=== PATIENT | female | born 1955 | race African-American/Black ===

== ENCOUNTER 2019-06-09 23:15 | Emergency (ER) | payer MEDICARE, MEDICAID ==
[~2019-06-09] VITALS: Ht 165.1 cm; Wt 77.0 kg
[2019-06-10] MEDS ORDERED: CYCLOBENZAPRINE 10MG TABLET PO ONE
[2019-06-10] MEDS ORDERED: KETOROLAC 60MG/2ML VIAL IM ONE
[2019-06-10] MEDS ORDERED: LIDOCAINE 5% PATCH TOP SCH
[2019-06-10 01:30] VITALS: BP 156/66
== END 2019-06-10 01:53 | disposition home or self-care (01) ==
LOC: ER 23:55
DX: M43.6 Torticollis (principal); R25.2 Cramp and spasm; I10 Essential (primary) hypertension; E11.9 Type 2 diabetes mellitus without complications; I25.2 Old myocardial infarction; Z95.0 Presence of cardiac pacemaker; Z88.0 Allergy status to penicillin
CPT/HCPCS: 96372; 99283; J1885

== ENCOUNTER 2023-08-14 15:58 | Emergency (ER) | payer MEDICARE, MEDICAID ==
[~2023-08-14] VITALS: Ht 167.6 cm; Wt 63.0 kg
[2023-08-14 16:10] VITALS: BP 127/59; PULSE 88; RESP 20; TEMP 98.2; O2SAT 97
[2023-08-14] MEDS ORDERED: HYDROCODONE/ACETAMINOPHEN 5/325MG TABLET PO STA (18:03)
[2023-08-14] MEDS ORDERED: IBUP-2029 MT (18:06)
== END 2023-08-14 18:32 | disposition home or self-care (01) ==
LOC: ER 15:58
DX: M79.641 Pain in right hand (principal); Z88.0 Allergy status to penicillin; I25.2 Old myocardial infarction; I10 Essential (primary) hypertension; W18.30XA Fall on same level, unspecified, initial encounter; Y93.89 Activity, other specified; Y92.89 Other specified places as the place of occurrence of the external cause; Y99.8 Other external cause status
CPT/HCPCS: 29125; 73110; 73130; 99284